=== PATIENT | female | born 1945 | race Caucasian/White ===

== ENCOUNTER 2016-11-06 09:39 | Outpatient (CLI) | payer OTHER ==
--- NOTE | 2016-11-06 10:46 | DIAGNOSTIC IMAGING REPORT ---
PROCEDURE: XR KNEE 3 VIEWS BILATERAL INDICATION: ARTHRITIS TECHNIQUE: Three views of each knee. COMPARISON: None. FINDINGS: RIGHT KNEE: Mild osteoarthritis with narrowing of the medial compartment and osteophyte formation. LEFT KNEE: Severe osteoarthritis with narrowing of the medial compartment and spur formation. IMPRESSION: 1. Severe osteoarthritis on the left, mild on the right.
== END 2016-11-06 23:00 ==
LOC: XR SRH 09:39
DX: M17.0 Bilateral primary osteoarthritis of knee (principal)

== ENCOUNTER 2016-12-04 12:45 | Outpatient (CLI) | payer OTHER ==
--- NOTE | 2016-12-05 22:57 | DIAGNOSTIC IMAGING REPORT ---
REFERRING PHYSICIAN/PROVIDER: Dr. Jose Luis Cope CONSULTING WREATH MACHINE OPERATOR: Jeffery aBrrios MD PROCEDURE: 2D echo, M-mode and complete color and flow Doppler interrogation TECHNICAL QUALITY: Adequate INDICATION: AORTIC VALVE DISORDER INTERPRETATIONS: CHAMBERS: LEFT ATRIUM: Normal left atrial size. LEFT VENTRICLE: Concentric left ventricular hypertrophy. Normal left ventricular size and hyperdynamic systolic function, EF 73%. No wall motion abnormalities. Grade II diastolic dysfunction. RIGHT ATRIUM: Normal right atrial size. RIGHT VENTRICLE: Normal right ventricular size and systolic function. VALVES: All valves nonrheumatic unless otherwise indicated. AORTIC VALVE: Trileaflet aortic valve with mild aortic stenosis. Peak velocity 3.0 m/s, mean gradient 18 mmHg. MITRAL VALVE: Trace mitral regurgitation. No mitral stenosis. TRICUSPID VALVE: Mild tricuspid regurgitation. Estimated pulmonary artery systolic pressure is 33 mmHg. PULMONIC VALVE: Trace pulmonic regurgitation. MISCELLANEOUS: No pericardial effusion. HEMODYNAMICS: CVP is 3 mmHg. IMPRESSION: 1. Concentric left ventricular hypertrophy with hyperdynamic systolic function, EF 73%. No wall motion abnormalities. 2. Grade II diastolic dysfunction. 3. Mild aortic stenosis with peak velocity 3.0 m/s, and mean gradient 18 mmHg. 4. Normal right ventricular size and systolic function. 5. Estimated pulmonary artery systolic pressure is 33 mmHg.
--- NOTE | 2016-12-05 22:57 | DIAGNOSTIC IMAGING REPORT ---
REFERRING PHYSICIAN/PROVIDER: Dr. Jose Luis Cope CONSULTING AVIATION MAINTENANCE INSTRUCTOR: Jeffery Barrios MD PROCEDURE: 2D echo, M-mode and complete color and flow Doppler interrogation TECHNICAL QUALITY: Adequate INDICATION: AORTIC VALVE DISORDER INTERPRETATIONS: CHAMBERS: LEFT ATRIUM: Normal left atrial size. LEFT VENTRICLE: Concentric left ventricular hypertrophy. Normal left ventricular size and hyperdynamic systolic function, EF 73%. No wall motion abnormalities. Grade II diastolic dysfunction. RIGHT ATRIUM: Normal right atrial size. RIGHT VENTRICLE: Normal right ventricular size and systolic function. VALVES: All valves nonrheumatic unless otherwise indicated. AORTIC VALVE: Trileaflet aortic valve with mild aortic stenosis. Peak velocity 3.0 m/s, mean gradient 18 mmHg. MITRAL VALVE: Trace mitral regurgitation. No mitral stenosis. TRICUSPID VALVE: Mild tricuspid regurgitation. Estimated pulmonary artery systolic pressure is 33 mmHg. PULMONIC VALVE: Trace pulmonic regurgitation. MISCELLANEOUS: No pericardial effusion. HEMODYNAMICS: CVP is 3 mmHg. IMPRESSION: 1. Concentric left ventricular hypertrophy with hyperdynamic systolic function, EF 73%. No wall motion abnormalities. 2. Grade II diastolic dysfunction. 3. Mild aortic stenosis with peak velocity 3.0 m/s, and mean gradient 18 mmHg. 4. Normal right ventricular size and systolic function. 5. Estimated pulmonary artery systolic pressure is 33 mmHg.
== END 2016-12-04 23:00 ==
LOC: US SRH 12:45
DX: I35.9 Nonrheumatic aortic valve disorder, unspecified (principal)